=== PATIENT | male | born 2000 | race Caucasian/White ===

== ENCOUNTER 2021-09-22 08:00 | Outpatient (CLI) | payer SELFPAY ==
--- NOTE | 2021-09-22 08:04 | RAD_ITS ---
STUDY: X-RAY - ESOPHAGUS (BARIUM SWALLOW) WITH FLUOROSCOPY REASON FOR EXAM: Male, 20 years old. Distal esophagus pain TECHNIQUE: 16 view(s) of the esophagus were obtained following swallowing of barium. FLUOROSCOPY TIME (if supplied): (22 seconds) minutes/seconds COMPARISON: None. FINDINGS: There is no demonstrated esophageal foreign body. There is no demonstrated stricture or mucosal abnormality. Normal gastroesophageal junction, without a demonstrated hiatal hernia. The patient ingested a 12 mm tablet of barium without difficulty. Normal visualized aortic arch and descending thoracic aorta. Normal visualized pulmonary parenchyma. Normal visualized osseous structures of the thorax. RAD/Esophagus Dual Contrast IMPRESSION: Normal plain film x-ray examination (barium swallow) of the esophagus. Electronically Signed: Canelo Crowell MD at 8:31 EDT ,
== END 2021-09-22 23:59 | disposition home or self-care (01) ==
PROVIDERS: PCP Family Medicine; Referring Provider Nurse Practitioner Adult Health; Visit Provider Nurse Practitioner Adult Health
DX: K21.9 Gastro-esophageal reflux disease without esophagitis (principal); R11.0 Nausea; R13.10 Dysphagia, unspecified
CPT/HCPCS: 74221

== ENCOUNTER 2021-09-26 06:02 | Day surgery (SDC) | payer SELFPAY ==
[2021-09-26] MEDS: Lactated Ringers 1,000 ML 15 ML IV (06:47)
[2021-09-26 06:49] VITALS: BP 131/80; PULSE 58; RESP 16; TEMP 36.6; O2SAT 100; BMI 22.1
--- NOTE | 2021-09-26 07:00 | EGD_PTH ---
PATIENT: KATIE SCHMIDT LOC: EN U#:[id number] AGE/SX: 20/M ROOM: RE09/26/[address]: Dr. Shiv Yee DO : 2000 BED: DIS: 09/26/2021 SPEC #: [id number] RECD: 09/26/21 07:43 STATUS: ERYN NICHO #: [id number] YASMIN: 09/26/21 07:[address]: Shiv Yee DEPT: SURGICAL PATHOLOGY RECD BY: Ginger Christie ENTERED: 09/26/21 08:22 SP TYPE: EGD BIOPSY [facility] DR: Dr. Kris Richards MD Tissues: A - Duodenum, NOS B - Gastric mucous membrane C - Esophagus, NOS Procedures: Special Stain Group II Surgery Specimen Level IV Alcian Blue/PAS (control) HEADER OPERATION: EGD with biopsies ([facility] [place]) PRE-OP DIAGNOSIS: Dysphagia, postprandial nausea, acid reflux TISSUE SUBMITTED: A ? Duodenum biopsy, B ? Gastric body biopsy, C ? Distal esophagus biopsy MICROSCOPIC DIAGNOSIS A. Duodenum, biopsy: No pathologic change. B. Gastric body, biopsy: Mild chronic gastritis. See comment. C. Distal esophagus, biopsy: No evidence of goblet cell metaplasia. See comment. AM:rene 09/27/2021 COMMENT B. The results of immunohistochemistry for Helicobacter pylori will be reported separately ([id number]). C. Alcian blue/PAS stain with matched control supports the above diagnosis. MICROSCOPIC DESCRIPTION Slides are reviewed. GROSS DESCRIPTION A - Received in fixative is one container labeled with the patient's name and designated duodenum biopsy. The specimen consists of one irregular fragment of light wolfe soft tissue that measures 0.5 x 0.4 x 0.1 cm. The specimen is totally submitted in one cassette. B - Received in fixative is one container labeled with the patient's name and designated gastric body biopsy. The specimen consists of two irregular fragments of light wolfe soft tissue that in aggregate measure 0.6 x 0.3 x 0.1 cm. The specimen is totally submitted in one cassette. C - Received in fixative is one container labeled with the patient's name and designated distal esophagus biopsy. The specimen consists of two irregular fragments of light wolfe soft tissue that in aggregate measure 0.6 x 0.3 x 0.1 cm. The specimen is totally submitted in one cassette. / SJ:rg 09/26/2021 TC:3 CPT: 80651 x3, 39285
--- NOTE | 2021-09-26 07:00 | IMM_PTH ---
PATIENT: KATIE SCHMIDT LOC: EN U#:[id number] AGE/SX: 20/M ROOM: RE09/26/[address]: Dr. Shiv Yee DO : 2000 BED: DIS: 09/26/2021 SPEC #: [id number] RECD: 09/26/21 09:21 STATUS: ERYN RERakan #: [id number] YASMIN: 09/26/21 07:[address]: Shiv Yee DEPT: IMMUNOHISTOCHEMISTRY RECD BY: Sabrina Espinosa ENTERED: 09/26/21 09:22 SP TYPE: IMMUNO OTHR DR: Dr. Kris Richards MD Tissues: B - Stomach, NOS Procedures: H Pylori (initial) PHYSICIAN & INSTITUTION [place] [id number] SPECIMEN INFORMATION: Tissue Source: B ? Gastric body biopsy Clinical Info: Dysphagia, postprandial nausea, acid reflux Specimen Number: [id number] CPT code: 21559 METHODOLOGY: Deparaffinized sections of prefer/formalin-fixed tissue or PAP/DQ stained slides are incubated with monoclonal/polyclonal antibodies/oligonucleotide probes. Localization is made via biotin free immunoperoxidase method. Appropriate controls are performed and reacted as expected. Results on target cell population are indicated in the following table: RESULTS: ANTIBODY / CLONE RESULT Block B H Pylori (polyclonal) negative These tests were developed and their performance characteristics determined by [facility]. They may not have been cleared or approved by the U.S. Food and Drug Administration. The FDA has determined that such clearance or approval is not necessary. The above immunohistochemical/dualISH markers are ordered and reviewed by the Pathologist. INTERPRETATION: B. Gastric body, biopsy: Negative for Helicobacter pylori organisms. AM:rene 09/27/2021
--- NOTE | 2021-09-26 07:07 | HP.PCM_ITS ---
History and Physical Date of Admission: 09/26/21 20 M who presents to the office today for esophageal pain, he is accompanied by his mother Sudden onset when he had a febrile illness in February 2021--he laid down to rest, woke up with chest pain, burning in his esophagus.? Ever since then he has had esophageal discomfort.? When he eats it feels like food has difficulty passing into the stomach.? Once he stops eating he has pain in the distal esophagus, this can last for 1 to 2 hours after the meal.? His symptoms worsened to the point where they occurred even with drinking water.? He would have burning and discomfort in the esophagus after eating or drinking anything. He was started on omeprazole 20 mg, no better after one month, so sucralfate was added x 1 month, no better so stopped. Saw general surgeon 2 wks later, who had pt try pantoprazole 40 mg daily x 2 wks, pt had increased nausea after eating, felt depressed. [place] better once he stopped the pantoprazole.? The general surgeon apparently did not feel EGD was needed. Tried grain-free diet w/o relief. Has been drinking aloe vera juice x 2 wks, maybe a little bit better. No choking. But sometimes feels like food is sticking, has to swallow repeatedly to get it to pass. Feels like food is stuck at lower esophagus, that's where he gets pain after eating or drinking. Throat can be irritated or tight after eating. Occasional regurgitation. Occasional acid reflux. Can have nausea after eating. No vomiting. No abdominal pain. No diarrhea, constipation. No hematochezia. He has had dark stools, no tarry stools. Lost weight--13 lbs in 2-3 mos. Wonders if he might have achalasia, after doing some research on the Internet. Feels better taking vit B12, he had less energy than normal.? Denies rash, dry eyes, dry mouth, oral sores.? Very good appetite.? No early satiety. 06/10/2021 stool H. pylori negative Hx palpitations that were due to vitamin D deficiency Very healthy diet.? No alcohol, tobacco, drugs.? 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 ROS Const Constitutional: No fatigue ENT ENT: Positive for difficulty swallowing Gastro GI: Positive for difficulty swallowing; No abdominal pain, belching, bloating, change in bowel habits, change in stool character, coffee ground emesis, constipation, cramping, diarrhea, heartburn, feeling full early, excessive flatus, incontinent of stools, Vomiting blood/hematemesis, Blood in stool, loose stools, Black,tarry stools, nausea/dyspepsia, pain with swallowing, vomiting or other Musc Musculoskeletal: No joint pain Skin Skin: No yellowing of the eye or itchy eyes Psych Psychiatric: No anxiety and No depression Endo Endocrine: No fatigue Aller/Imm Allergy/Immunologic: No itchy eyes Azam/Lymp Hematologic/Lymphatic: No easy bleeding or easy bruising Exam Const General: cooperative, healthy appearing and no acute distress Nutritional Appearance: average body habitus [facility] Head: normal to inspection Eyes General: appearance normal, both eyes and all related structures Neck Neck: normal visual inspection, no lymphadenopathy, supple and nontender Thyroid: thyroid normal Chest Chest palpation & inspection: normal inspection of the chest and normal palpation of entire chest wall Resp Effort & Inspection: normal respiratory effort GI Inspection: normal to inspection Palpation: soft, no hepatosplenomegaly, no masses and nontender Skin General: no rashes or lesions noted Neuro Speech: speech normal Gait: normal gait Psych Mood: euthymic mood Affect: normal affect Quality Reporting Tobacco Screening ([facility] 138) Smoking Status: Never smoker Assessment and Plan Assessment and Plan (1) Dysphagia: ?Status:?Acute ?Plan: 20-year-old healthy male with sudden onset of acid reflux in February 2021 followed by chronic postprandial esophageal pain and sensation of food not passing into the stomach.? Symptoms did not improve with PPI or sucralfate.? Case reviewed with Dr. Yee.? We will start with an esophagram, once we look at those images we will call him with those results.? We will schedule him for an EGD in case that proves to be necessary.? Unlikely to have sudden onset achalasia; we discussed esophageal manometry, would only do that test if absolutely necessary.? Differential diagnosis includes esophagitis, Regan's, esophageal stricture, achalasia although unlikely. (2) Postprandial nausea: ?Status:?Acute (3) Acid reflux: ?Status:?Acute ? ? ? Orders: Orders Esophagus Dual Contrast Today K21.9 - Gastro-esophageal reflux disease without esophagitis, R11.0 - Nausea, R13.10 - Dysphagia, unspecified ? Medications: Discontinued sucralfate (Carafate) ?? Discontinued Reason:? Pt no longer taking 1 g? PO QAC ? ? omeprazole ?? Discontinued Reason:? Pt no longer taking 20 mg? PO DAILY ? ? I have re-examined the patient. There are no clinical changes since date of exam.
[2021-09-26 07:35] VITALS: BP 112/71; BP 131/80; PULSE 56; RESP 16; TEMP 36.5; O2SAT 96
[2021-09-26 07:40] VITALS: BP 103/64; BP 131/80; PULSE 58; RESP 16; O2SAT 97
--- NOTE | 2021-09-26 07:41 | OP.EGD_ITS ---
Patient Name: Les Kimball Procedure Date: 09/26/2021 7:12 AM Date of : 2000 Age: 20 Procedure: Upper GI endoscopy Indications: Epigastric abdominal pain, Functional Dyspepsia, Heartburn Providers: Shiv Yee DO Medicines: Monitored Anesthesia Care Patient Profile: This is a 20 year old male. Refer to note in patient chart for documentation of history and physical. Patient has symptoms of chronic abdominal cramping, chronic abdominal distention, chronic epigastric abdominal pain and chronic heartburn. The symptoms first began February. Complications: No immediate complications. Procedure: Pre-Anesthesia Assessment: - Prior to the procedure, a History and Physical was performed, and patient medications and allergies were reviewed. The risks and benefits of the procedure and the sedation options and risks were discussed with the patient. All questions were answered and informed consent was obtained. Patient identification and proposed procedure were verified by the physician in the pre-procedure area. Mental Status Examination: alert and oriented. Airway Examination: normal oropharyngeal airway and neck mobility. Respiratory Examination: clear to auscultation. CV Examination: normal. Prophylactic Antibiotics: The patient does not require prophylactic antibiotics. Prior Anticoagulants: The patient has taken no previous anticoagulant or antiplatelet agents. ASA Grade Assessment: II - A patient with mild systemic disease. After reviewing the risks and benefits, the patient was deemed in satisfactory condition to undergo the procedure. The anesthesia plan was to use moderate sedation / analgesia (conscious sedation). Immediately prior to administration of medications, the patient was re-assessed for adequacy to receive sedatives. The heart rate, respiratory rate, oxygen saturations, blood pressure, adequacy of pulmonary ventilation, and response to care were monitored throughout the procedure. The physical status of the patient was re-assessed after the procedure. After obtaining informed consent, the endoscope was passed under direct vision. Throughout the procedure, the patient's blood pressure, pulse, and oxygen saturations were monitored continuously. The gastroscope was introduced through the mouth, and advanced to the second part of duodenum. The upper GI endoscopy was accomplished without difficulty. The patient tolerated the procedure well. Scope In: 7:21:08 AM Scope Out: 7:27:16 AM Total Procedure Duration Time 0 hours 6 minutes 8 seconds Findings: The Z-line was irregular and was found 40 cm from the incisors. Biopsies were taken with a cold forceps for histology. Verification of patient identification for the specimen was done. Estimated blood loss was minimal. Bilious fluid was found in the stomach. Patchy mildly erythematous mucosa without bleeding was found in the gastric body. Biopsies were taken with a cold forceps for histology. Verification of patient identification for the specimen was done. Estimated blood loss was minimal. Patchy mildly erythematous mucosa without active bleeding and with no stigmata of bleeding was found in the first portion of the duodenum. Biopsies were taken with a cold forceps for histology. Verification of patient identification for the specimen was done. Estimated blood loss was minimal. Impression: - Z-line irregular, 40 cm from the incisors. Biopsied. - Bilious gastric fluid. - Erythematous mucosa in the gastric body. Biopsied. - Erythematous duodenopathy. Biopsied. Recommendation: - Written discharge instructions were provided to the patient. - The signs and symptoms of potential delayed complications were discussed with the patient. - Patient has a contact number available for emergencies. - Return to normal activities tomorrow. - Resume previous diet. - Continue present medications. - Await pathology results. Procedure Code(s): --- Professional --- 81217, Esophagogastroduodenoscopy, flexible, transoral; with biopsy, single or multiple CPT copyright 2017 [employer]. All rights reserved. The codes documented in this report are preliminary and upon group fitness assistant department head review may be revised to meet current compliance requirements. Shiv Yee DO 09/26/2021 7:41:32 AM This report has been signed electronically. Number of Addenda: 1 Note Initiated On: 09/26/2021 7:12 AM Addendum Number: 1 Addendum Date: 12/01/2021 6:37:10 AM MAC was used as sedation for this procedure. Shiv Yee DO 12/01/2021 6:37:16 AM This report has been signed electronically.
--- NOTE | 2021-09-26 07:42 | OP.CCLET_ITS ---
12/01/2021 Kris Richards Md Re : Upper GI endoscopy procedure for Les Kimball Jefferson Richards This procedure was performed on Sunday, September 26, 2021. My impressions and recommendations are as follows: Impressions : - Z-line irregular, 40 cm from the incisors. Biopsied. - Bilious gastric fluid. - Erythematous mucosa in the gastric body. Biopsied. - Erythematous duodenopathy. Biopsied. Recommendations : - Written discharge instructions were provided to the patient. - The signs and symptoms of potential delayed complications were discussed with the patient. - Patient has a contact number available for emergencies. - Return to normal activities tomorrow. - Resume previous diet. - Continue present medications. - Await pathology results. My findings are described in the full procedure note, which is enclosed. If I can be of further assistance, please feel free to contact me at . Sincerely, Shiv Yee, 09/26/2021 7:41:32 AM This report has been signed electronically.
[2021-09-26 07:45] VITALS: BP 112/65; BP 131/80; PULSE 59; RESP 16; O2SAT 97
[2021-09-26 07:50] VITALS: BP 112/70; BP 131/80; PULSE 54; RESP 16; TEMP 36.7; O2SAT 98
[2021-09-26 08:09] VITALS: BP 131/80
== END 2021-09-26 08:15 | disposition home or self-care (01) ==
LOC: EN 06:09 → AC 06:09
PROVIDERS: PCP Family Medicine; Referring Provider Family Medicine; Visit Provider Internal Medicine Gastroenterology
PROC: 0DJ08ZZ Inspection of Upper Intestinal Tract, Via Natural or Artificial Opening Endoscopic (ICD-10-PCS; CPT 43235; principal; 2021-09-26 06:55)
DX: K29.50 Unspecified chronic gastritis without bleeding (principal); K21.9 Gastro-esophageal reflux disease without esophagitis
CPT/HCPCS: 43239; 88305; 88313; 88342; J7120; J2405

== ENCOUNTER → 2021-11-28 | Outpatient (CLI) | payer SELFPAY ==
[2021-11-28 15:01] LABS: Absolute Lymphocyte Count 1.78 X10^3/uL (0.83-4.51); Absolute Neutrophil Count 6.1 X10^3/uL (2.0-7.7); Basophil# 0.05 X10^3/uL; Basophil% 0.6 % (0-1); Eosinophil# 0.28 X10^3/uL; Eosinophils% 3.1 % (0-5); Hematocrit 48.3 % (40-54); Hemoglobin 16.4 g/dL (13.0-16.5); Lymphocyte # 1.78 X10^3/ul (0.83-4.51); Lymphocyte % 19.6 % (19-41); Mean Corpuscular Hgb 30.8 pg (27.0-32.0); Mean Corpuscular Volume 90.6 fL (80-94); Mean Platelet Vol. 10.6 fl (6.2-12.0); Monocyte# 0.86 X10^3/uL; Monocyte% 9.5 % (0-10); NRBC Flagged by Analyzer 0 % (0-5); Neutrophil # 6.06 X10^3/uL (2.7-7.7); Neutrophil % 66.9 % (47-70); Platelet Count 193 K/mm3 (150-450); RBC Distribution Width CV 12.1 % (11.6-14.6); RBC Distribution Width SD 39.5 fl (35.1-43.9); Red Blood Count 5.33 M/mm3 (4.6-6.2); White Blood Count 9.1 K/mm3 (4.4-11.0)
[2021-11-28 16:05] LABS: ALB/GLOB Ratio 1.3 RATIO (0.9-2.4); AST(SGOT) 19 U/L (15-37); Alanine Aminotransfer ALT/SGPT 24 U/L (16-61); Albumin, Serum 4.3 g/dL (3.2-5.0); Alkaline Phosphatase 52 U/L (45-117); Anion Gap 8 (5-15); BUN 18 mg/dL (7-18); BUN/Creat Ratio 17.5 RATIO (10-20); Chloride 102 mmol/L (98-107); Creatinine, Serum 1.03 mg/dL (0.70-1.30); EST Glomerular Filtration Rate 95 mL/min (>60); Est Glom Filt Rate - Afr Amer 115 mL/min (>60); Globulin 3.4 g/dL (2.2-4.2); Glucose 95 mg/dL (74-106); Potassium 3.9 mmol/L (3.5-5.1); Protein, Total 7.7 g/dL (6.4-8.2); Sodium Level 138 mmol/L (136-145); Thyroid Stim Hormone (TSH) 1.93 uIU/mL (0.358-3.74)
[2021-11-29 11:25] LABS: Bilirubin, Direct 0.31 mg/dL (0.00-0.30)
[2021-12-02 15:30] LABS: Vitamin D 1,25-Dihydroxy 71.7 pg/mL (24.8-81.5)
== END | disposition home or self-care (01) ==
LOC: LAB 14:00
PROVIDERS: PCP Family Medicine; Referring Provider Nurse Practitioner Adult Health; Visit Provider Nurse Practitioner Adult Health
DX: R17 Unspecified jaundice (principal); R11.0 Nausea; K21.9 Gastro-esophageal reflux disease without esophagitis
CPT/HCPCS: 36415; 80053; 82248; 82652; 84443; 85025